=== PATIENT | female | born 1955 | race Caucasian/White ===

== ENCOUNTER 2022-01-03 16:26 | Observation (INO) ==
[2022-01-03 17:11] LABS: POC Blood Urea Nitrogen < 3 (6-20); POC Calcium, Ionized 1.13 (1.16-1.32); POC Chloride 97 (96-108); POC Creatinine 0.7 (0.6-1.2); POC Glucose, Random 123 (70-105); POC Potassium 3.7 (3.3-5.1); POC Sodium 135 (133-145)
[2022-01-03] MEDS ORDERED: METOCLOPRAMIDE 10 MG/2 ML VIAL IV ONE (17:40)
[2022-01-03] MEDS ORDERED: diphenhydrAMINE 50 MG/ML VIAL IV ONE (17:40)
[2022-01-03] MEDS ORDERED: ONDANSETRON 4 MG/2 ML VIAL IV ONE (17:46)
[2022-01-03] MEDS ORDERED: ONDANSETRON 4 MG ODT TABLET SL ONE (17:47)
[2022-01-03 17:55] LABS: Basophils # (Auto) 0 K/mcL (0.00-0.30); Basophils % (Auto) 0 % (0.0-2.0); Eosinophils # (Auto) 0.01 K/mcL (0.00-0.70); Eosinophils % (Auto) 0.1 % (0.0-7.0); Hematocrit 36.5 % (34.1-44.9); Hemoglobin 11.9 g/dL (11.2-15.7); Lymphocytes # (Auto) 1.51 K/mcL (1.50-4.80); Lymphocytes % (Auto) 18.2 % (15.5-49.0); Mean Corpuscular HGB Conc 32.6 g/dL (31.0-36.0); Mean Platelet Volume 10.9 fL (8.8-12.5); Monocytes # (Auto) 0.69 K/mcL (0.10-0.90); Monocytes % (Auto) 8.3 % (1.0-12.0); Neutrophils % (Auto) 72.8 % (38.0-78.0); Platelet Count 193 K/mcL (140-440); Red Cell Distribution Width 14.3 % (11.5-14.5); WBC 8.3 K/mcL (4.5-11.0)
[2022-01-03 18:13] LABS: ALT/SGPT < 5 U/L (<40); AST/SGOT 15 U/L (<32); Albumin < 0.2 gm/dL (3.2-5.2); Alkaline Phosphatase < 5 U/L (39-117); Bilirubin,Direct 0.2 mg/dL (<0.3); Bilirubin,Total 0.6 mg/dL (0.1-1.0); Globulin 6.2 gm/dL (2.2-3.7)
[2022-01-03] MEDS: KETOROLAC 30 MG/ML VIAL IV ONE ×2 (19:00→20:45)
[2022-01-03] MEDS ORDERED: ALBUTEROL SULFATE 200 PUFF INHALER INH PRN (19:47)
--- NOTE | 2022-01-03 20:03 | Internal Med History&Physical ---
HPI History of Present Illness Patient information: Note initiated : 01/03/22 at 7:55 pm Service Date, if different from initiated Date: [] Patient: Tomasa Magaña a 66 y/o F admitted on for abdominal pain. Chief Complaint: [abdominal pain, constipation] Chief complaint: abdominal pain, constipation History of present illness: Ms. Magaña is a 66 year old F history of gastric band placement and removal, chronic constipation's, depression, hypothyroidism, chronic pain, asthma, presenting with 10-day history of constipations and 7-day history of left lower quadrant abdominal pain. She have a long history of constipations. Last bowel movement about 10 days ago. She recently presented to [facility] ER for constipation and abdominal pain, and she was being discharged home with prescriptions of enema. She felt the outpatients enema therapy and she presented back to our ED today for further evaluation and treatments. She is currently complaining of 7 out of 10 left lower quadrant boring intermittent abdominal pain without radiations. She is also complaining of nausea. She has been passing gas but last bowel movement was about 10 days ago. She only able to take sips of water. She is not interested in solid food. Vital signs within normal limits. Labs also within normal limits. During her ER stay in [facility], they performed a CT of the abdomen pelvis and it was reported that she had large amount of stool in the descending colon and sigmoid colon. Constitutional Constitutional: Absent chills, excessive sweating, fatigue, fever(s) or weakness EENT Eyes: Absent blurry vision, change in vision, loss of vision or other visual disturbances Ears: Absent decreased hearing or tinnitus Nose, mouth and throat: Absent abnormal hearing, dry mouth, headache(s), nasal congestion or sore throat Cardiovascular Cardiovascular: Absent chest pain, chest pain at rest, edema, irregular heart rhythm or palpatations Respiratory Respiratory: Absent cough, dyspnea or wheezing Gastrointestinal Gastrointestinal: Present abdominal pain, constipation and nausea; Absent diarrhea or vomiting Musculoskeletal Musculoskeletal: Absent back pain, deformity, limited range of motion, muscle cramps, muscle weakness or numbness Integumentary Integumentary: Absent lesions, rash or wounds Neurological Neurological: Absent focal weakness, headache(s) or numbness Psychiatric Psychiatric: Absent anxiety, depression or hallucinations PFSH PFSH All Active Problems (Updated 01/03/22 @ 19:21 by Db Chopra DO) Colitis (Acute) Stercoral colitis (Acute) History of surgery (Chronic) Arm vein blood clot (Chronic) Achalasia (Chronic) Endocrine disorder (Chronic) Radiculopathy, lumbar region (Chronic) Major depressive disorder, recurrent (Acute) Bilateral sacroiliitis (Chronic) Polyarthralgia (Chronic) Foot pain, bilateral (Chronic) Inflammatory arthropathy (Chronic) Opiate dependence (Chronic) Anxiety disorder (Chronic) Vertigo (Chronic) Post-menopausal (Chronic) History of palpitations (Chronic) Spondyloarthropathy (Chronic) Nausea (Chronic) History of breast lump/mass excision (Chronic) UTI (urinary tract infection) (Chronic) History of hypoglycemia (Chronic) History of hyperglycemia (Chronic) Asthma (Chronic) Acute pain of both ears (Chronic) Wheezing (Chronic) Vitamin D deficiency (Chronic) Uncomplicated opioid dependence (Chronic) Non-restorative sleep (Chronic) Nocturnal hypoxia (Chronic) Need for jdemvmcclo-klsxacx-ybzpwufei (Tdap) vaccine (Chronic) Menopause (Chronic) Major depressive disorder (Chronic) Insomnia (Chronic) Idiopathic peripheral neuropathy (Chronic) Hereditary and idiopathic neuropathy (Chronic) Generalized anxiety disorder (Chronic) Gastroesophageal reflux disease (Chronic) Encounter for long-term (current) drug use (Chronic) Diverticulitis (Chronic) Diarrhea (Chronic) Antibiotic-induced yeast infection (Chronic) Acute sinusitis (Chronic) Migraine headache (Chronic) Hypoxia (Chronic) Neuropathy (Chronic) Glucose intolerance (impaired glucose tolerance) (Chronic) Psychiatric problem (Chronic) Chronic pain (Chronic) Constipation (Chronic) Hyperlipidemia (Chronic) Hypothyroidism (Chronic) Chronic constipation (Chronic) Neck pain (Chronic) Trochanteric bursitis (Chronic) Hip pain (Chronic) Hormone deficiency (Chronic) Depression (Chronic) Gastroparesis (Chronic) Balance problem (Chronic) Difficulty walking (Chronic) Fatigue (Chronic) Myofascial pain (Chronic) Cervicalgia (Chronic) Foot pain (Chronic) Medical History (Updated 01/03/22 @ 19:21 by Db Chopra DO) Achalasia Acute pain of both ears Acute sinusitis Antibiotic-induced yeast infection Anxiety disorder Arm vein blood clot RIGHT Asthma exercise-induced Balance problem Bilateral sacroiliitis Cervicalgia with myofascial pain Chronic constipation with a component related to medication Chronic pain Constipation Depression Diarrhea Difficulty walking Diverticulitis Encounter for long-term (current) drug use Endocrine disorder Fatigue Foot pain Syseqn-zhqcfnpdw-ijddcznsy Foot pain, bilateral Gastroesophageal reflux disease Gastroparesis with complications related to Lap Band placement Generalized anxiety disorder Glucose intolerance (impaired glucose tolerance) Hereditary and idiopathic neuropathy Hip pain History of breast lump/mass excision left History of hyperglycemia History of hypoglycemia History of palpitations Hormone deficiency Hyperlipidemia Hypothyroidism Hypoxia Idiopathic peripheral neuropathy Inflammatory arthropathy Insomnia anxiety Major depressive disorder Menopause Migraine headache Myofascial pain Nausea Neck pain Need for iazbkwefle-nfzvzlu-asxklursi (Tdap) vaccine Neuropathy Nocturnal hypoxia Non-restorative sleep Opiate dependence Polyarthralgia Post-menopausal Psychiatric problem Radiculopathy, lumbar region Spondyloarthropathy Trochanteric bursitis Acute, severe-Left Uncomplicated opioid dependence UTI (urinary tract infection) Vertigo benign positional Vitamin D deficiency Wheezing Surgical History History of spinal arthrodesis History of surgery Laparoscopic Restrictive Proc Adjustable Gastric Band Placement and Band Removal History of surgery LESI #1 Lt. L4-5 w/o sed 05/20/201812/24 LESI #2 L4-5 w/o sed 12/30/1710/23 LESI #1 L4-5 w/o sed 10/23/201707/18 SI Joint Injection Bilat w/o sed 07-17-1103/18 MBB cervical C2-3, C3-4, C4-5 bilat 04-05-1102/16 MBB Bilateral C2-3, C3-4, and C4-5 w/o sed 02-20-09/16 SCS Trial w/sed (09-13-10) 11/15 TRUDY #2, w/ cath, w/ sed (11/15/09) 10/15 TRUDY #1, C7-T1 10/25/09 w/sed 01/13 RFTC, left at C3-C7 w/ sed Family History Mother Adenomatous polyp Father Abdominal aortic aneurysm Grandmother Cerebrovascular accident Son ADHD (attention deficit hyperactivity disorder) Alcohol abuse Mood disorder Other Breast cancer Diabetes mellitus Glaucoma Prostate cancer Social History marital status: occupational status: retired other: Sedentary Lifestyle MEDS/ALLERGIES Home Medications and Allergies Home Medications Medication Instructions Recorded Confirmed Type albuterol sulfate 5 mg/mL(0.5 %) See Rx Instructions inhalation 10/01/16 01/03/22 History solution for nebulization .COMPLEX PRN Shortness Of Breath thyroid (pork) 90 mg tablet 90 mg PO QAM 10/01/16 01/03/22 History ([place] Thyroid) albuterol sulfate 90 mcg/actuation See Rx Instructions inhalation QID 10/31/16 01/03/22 History aerosol inhaler (ProAir HFA) PRN Shortness Of Breath budesonide-formoterol HFA 160 See Rx Instructions inhalation BID 10/31/16 01/03/22 History mcg-4.5 mcg/actuation aerosol inhaler (Symbicort) ondansetron HCl 8 mg tablet 8 mg PO PRN PRN Nausea 03/15/17 01/03/22 History sumatriptan succinate 100 mg tablet 100 mg PO PRN PRN Headache 03/15/17 01/03/22 History promethazine 12.5 mg rectal 12.5 mg [place] PRN PRN Nausea 10/26/20 01/03/22 History suppository imipramine HCl 10 mg tablet 15 mg PO QHS 30 days #45 tabs 08/31/21 01/03/22 Rx lorazepam 1 mg tablet 1 mg PO HS #30 tabs 01/01/22 01/03/22 Rx metoprolol succinate 50 mg 2 tab PO BID 01/03/22 01/03/22 History tablet,extended release 24 hr Allergies Allergy/AdvReac Type Severity Reaction Status Date / Time acetaminophen [From Tylenol] Allergy Unknown Anaphylaxis Verified 01/03/22 16:34 hydrocodone [From Vicoprofen] Allergy Unknown Unknown Verified 01/03/22 16:34 ibuprofen [From Vicoprofen] Allergy Unknown Unknown Verified 01/03/22 16:34 moxifloxacin [From Avelox] Allergy Unknown Unknown Verified 01/03/22 16:34 prochlorperazine Allergy Unknown Unknown Verified 01/03/22 16:34 [From Compazine] propofol Allergy Unknown Unknown Verified 01/03/22 16:34 Sulfa (Sulfonamide Allergy Unknown Unknown Verified 01/03/22 16:34 Antibiotics) tramadol Allergy Unknown Unknown Verified 01/03/22 16:34 nitrofurantin Allergy Severe Swelling Uncoded 06/14/21 14:02 sulfac Allergy Unknown Unknown Uncoded 06/14/21 14:02 EXAM Constitutional Vitals: Temp Pulse Resp BP Pulse Ox O2 Del Method 36.3 C 91 H 18 116/102 86 L 01/03/22 16:27 01/03/22 17:23 01/03/22 16:27 01/03/22 17:46 01/03/22 17:23 01/03/22 16:27 General appearance: cooperative and no acute distress Head Head exam: Present atraumatic and normocephalic Eye Eye exam: Present EOMI and PERRL ENT ENT exam: Present mucous membranes moist, normal exam and normal external ear exam Neck Neck exam: Present normal inspection; Absent lymphadenopathy, tenderness or thy romegaly Respiratory Respiratory exam: Absent accessory muscle use, respiratory distress or wheezes Cardiovascular Cardiovascular exam: Present normal rate and rhythm; Absent JVD GI/Abdominal GI/Abdominal exam: Present normal bowel sounds, distended, firm, guarding and tenderness; Absent organomegaly Extremities Exam Extremities exam: Present full ROM, normal capillary refill and normal inspection; Absent tenderness Neurological Exam Neurological exam: Present alert, CN II-XII intact and oriented X3; Absent motor sensory deficit Psychiatric Psychiatric exam: Present normal affect and normal mood; Absent anxious or depressed Skin Skin exam: Present dry and intact DATA Data Completed and Pending Labs: Labs from last 24 hours 01/03/22 01/03/22 01/03/22 17:08 17:03 17:03 WBC 8.3 RBC 4.40 Hgb 11.9 Hct 36.5 POC Hct 35.0 L MCV 83.0 MCH 27.0 MCHC 32.6 RDW 14.3 Plt Count 193 MPV 10.9 Immature Gran % (Auto) 0.6 H Neut % (Auto) 72.8 Lymph % (Auto) 18.2 [place] % (Auto) 8.3 Eos % (Auto) 0.1 Baso % (Auto) 0 Lymph # (Auto) 1.51 [place] # (Auto) 0.69 Eos # (Auto) 0.01 Baso # (Auto) 0 Immature Gran # 0.05 Absolute Neutrophils 6.04 POC Sodium 135 POC Potassium 3.7 POC Chloride 97 POC Total CO2 29.0 POC BUN < 3 L POC Creatinine 0.7 POC Glucose 123 H POC WB Ioniz Calcium 1.13 L Total Bilirubin 0.6 Direct Bilirubin 0.2 AST 15 ALT < 5 Alkaline Phosphatase < 5 L Total Protein 6.4 Albumin < 0.2 L Globulin 6.2 H Lipase 9 A/P Assessment and plan (1) Stercoral colitis: Status: Acute (2) Asthma: Status: Chronic Comment: exercise-induced (3) Major depressive disorder: Status: Chronic Qualifiers: Major depression recurrence: recurrent Active/Remission status: in partial remission Qualified Code(s): F33.41 - Major depressive disorder, recurrent, in partial remission (4) Constipation: Status: Chronic (5) Hypothyroidism: Status: Chronic (6) Gastroparesis: Status: Chronic Comment: with complications related to Lap Band placement (7) Migraine headache: Status: Chronic Narrative A/P Narrative: Assessment and Plans: 1. Stercoral colitis from chronic constipation: Observation med surg Clear liquid diet, advance as tolerate Colace Senna Milk of Magnesia Miralax Lactulose Dulcolax suppository Fleet enema 2. Gastroparesis, h/o gastric band: Zofran Phenergan Clear liquid diet, advance as tolerate 3. Hypothyroidism: Continue bronchodilators from home regimen 4. Major depressive disorder: Imipramine 5. h/o Migraine headache: Sumatriptan PRN migraine headache GI ppx: not currently indicated DVT ppx: Lovenox Code status: Full Prognosis: stable Disposition: observation med surg Time Spent With Patient Time: Total time spent is greater than 50% in coordination of care (as documented) at patient's floor/unit and/or counseling patient: Total time spent with greater than 50% in coordination of care (as documented) at patient's floor/unit and/or counseling patient:: 50 - 70 minutes
[2022-01-03] MEDS ORDERED: SUMAtriptan SUCCINATE 50 MG TABLET PO PRN (20:15)
[2022-01-03] MEDS ORDERED: KETOROLAC 60 MG/2 ML VIAL IM ONE (20:44)
[2022-01-03] MEDS ORDERED: IMIPRAMINE 10 MG TABLET PO SCH (21:00)
[2022-01-03] MEDS ORDERED: LORazepam 1 MG TABLET PO SCH (21:00)
[2022-01-03] MEDS ORDERED: BUDESONIDE FORMOTEROL INH PRN (21:00)
[2022-01-03] MEDS ORDERED: ONDANSETRON 4 MG/2 ML VIAL IV PRN (21:04)
[2022-01-03] MEDS ORDERED: LACTULOSE 20 GM/30 ML ORAL.SOL PO PRN (21:04)
[2022-01-03] MEDS ORDERED: PROMETHAZINE 25 MG/ML VIAL IV PRN (21:04)
[2022-01-03] MEDS ORDERED: SENNOSIDES 1 TABLET PO SCH (21:04)
[2022-01-03] MEDS ORDERED: ACETAMINOPHEN 325 MG TABLET PO PRN (21:04)
[2022-01-03] MEDS ORDERED: FLEETS ADULT ENEMA PR PRN (21:04)
[2022-01-03] MEDS ORDERED: MAGNESIUM HYDROXIDE 30 ML ORAL.SUSP PO PRN (21:04)
[2022-01-03] MEDS ORDERED: BISACODYL 10 MG SUPP.RECT PR PRN (21:04)
[2022-01-03] MEDS ORDERED: IBUPROFEN 600 MG TABLET PO PRN (21:04)
[2022-01-03] MEDS ORDERED: POLYETHYLENE GLYCOL 3350 17 GM PACKET PO PRN (21:04)
[2022-01-03] MEDS ORDERED: IPRATROPIUM/ALBUTEROL 3 ML AMPUL.NEB NEB PRN (21:04)
[2022-01-03] MEDS ORDERED: traZODone HCL 50 MG TABLET PO PRN (21:04)
[2022-01-03] MEDS: DOCUSATE SODIUM 100 MG CAPSULE PO SCH (22:37)
[2022-01-03] MEDS: METOPROLOL SUCCINATE 50 MG TAB.XL.24H PO SCH (22:37)
[2022-01-03] MEDS: 0.9 % SODIUM CHLORIDE 10 ML SYRINGE IV SCH (22:38)
[2022-01-03] MEDS ORDERED: KETOROLAC 30 MG/ML VIAL ONE (23:35)
[2022-01-03] MEDS: KETOROLAC 30 MG/ML VIAL IV PRN (23:36)
--- NOTE | 2022-01-04 03:33 | Emergency Department Note ---
Abdominal Pain HPI General Chief Complaint: Abdominal Pain Stated Complaint: abdominal pain Time Seen by Provider: 01/03/22 16:28 Source: patient Mode of arrival: ambulatory Limitations: no limitations History of Present Illness HPI Narrative: Narrative: This philly Menjivar is a 66-year-old female with a history of stercoral colitis with chronic constipation presenting to the ED with typical flareup of her symptoms left lower quadrant pain nausea, no bowel movement for 1 week but still passing flatus. She was seen [facility] about 1 week ago where she had a CT scan done that showed colitis without obstruction perforation or diverticulitis to her left descending colon and sigmoid with moderate stool burden. She was discharged home with MiraLAX she has done an enema and stool softeners but says it is not helping. No bloody bowel movement no urinary symptoms no fever no chills or other complaints. She says she has required admission 9 or 10 times in the past for this exact issue usually for serial en emas and strict bowel regimen. She follows with gastroenterology. Related Data Home Medications Medication Instructions Recorded Confirmed albuterol sulfate 5 mg/mL(0.5 %) See Rx Instructions inhalation 10/01/16 01/03/22 solution for nebulization .COMPLEX PRN Shortness Of Breath albuterol sulfate 90 mcg/actuation See Rx Instructions inhalation QID 10/31/16 01/03/22 aerosol inhaler (ProAir HFA) PRN Shortness Of Breath budesonide-formoterol HFA 160 See Rx Instructions inhalation BID 10/31/16 01/03/22 mcg-4.5 mcg/actuation aerosol inhaler (Symbicort) ondansetron HCl 8 mg tablet 8 mg PO PRN PRN Nausea 03/15/17 01/03/22 sumatriptan succinate 100 mg tablet 100 mg PO PRN PRN Headache 03/15/17 01/03/22 promethazine 12.5 mg rectal 12.5 mg [place] PRN PRN Nausea 10/26/20 01/03/22 suppository metoprolol succinate 50 mg 2 tab PO BID 01/03/22 01/03/22 tablet,extended release 24 hr Previous Rx's Medication Instructions Recorded imipramine HCl 10 mg tablet 15 mg PO QHS 30 days #45 tabs 08/31/21 lorazepam 1 mg tablet 1 mg PO HS #30 tabs 01/01/22 Allergies Allergy/AdvReac Type Severity Reaction Status Date / Time acetaminophen [From Tylenol] Allergy Unknown Anaphylaxis Verified 01/03/22 21:12 hydrocodone [From Vicoprofen] Allergy Unknown Rash Verified 01/03/22 21:12 ibuprofen [From Vicoprofen] Allergy Unknown Rash Verified 01/03/22 21:12 moxifloxacin [From Avelox] Allergy Unknown Unknown Verified 01/03/22 21:12 prochlorperazine Allergy Unknown Photosensit Verified 01/03/22 21:12 [From Compazine] ivity propofol Allergy Unknown Unknown Verified 01/03/22 21:12 Sulfa (Sulfonamide Allergy Unknown Unknown Verified 01/03/22 21:12 Antibiotics) tramadol Allergy Unknown Unknown Verified 01/03/22 21:12 nitrofurantin Allergy Severe Swelling Uncoded 06/14/21 14:02 sulfac Allergy Unknown Unknown Uncoded 06/14/21 14:02 Review of Systems ROS ROS Narrative: Narrative: All systems ED: reviewed and negative except as stated. PFSH Narrative Patient History Narrative: Narrative: Medical/Surgical/Family History All Active Problems Colitis (Acute) Stercoral colitis (Acute) History of surgery (Chronic) Arm vein blood clot (Chronic) Achalasia (Chronic) Endocrine disorder (Chronic) Radiculopathy, lumbar region (Chronic) Major depressive disorder, recurrent (Acute) Bilateral sacroiliitis (Chronic) Polyarthralgia (Chronic) Foot pain, bilateral (Chronic) Inflammatory arthropathy (Chronic) Opiate dependence (Chronic) Anxiety disorder (Chronic) Vertigo (Chronic) Post-menopausal (Chronic) History of palpitations (Chronic) Spondyloarthropathy (Chronic) Nausea (Chronic) History of breast lump/mass excision (Chronic) UTI (urinary tract infection) (Chronic) History of hypoglycemia (Chronic) History of hyperglycemia (Chronic) Asthma (Chronic) Acute pain of both ears (Chronic) Wheezing (Chronic) Vitamin D deficiency (Chronic) Uncomplicated opioid dependence (Chronic) Non-restorative sleep (Chronic) Nocturnal hypoxia (Chronic) Need for giissgsyyk-ojzusuq-iemieavel (Tdap) vaccine (Chronic) Menopause (Chronic) Major depressive disorder (Chronic) Insomnia (Chronic) Idiopathic peripheral neuropathy (Chronic) Hereditary and idiopathic neuropathy (Chronic) Generalized anxiety disorder (Chronic) Gastroesophageal reflux disease (Chronic) Encounter for long-term (current) drug use (Chronic) Diverticulitis (Chronic) Diarrhea (Chronic) Antibiotic-induced yeast infection (Chronic) Acute sinusitis (Chronic) Migraine headache (Chronic) Hypoxia (Chronic) Neuropathy (Chronic) Glucose intolerance (impaired glucose tolerance) (Chronic) Psychiatric problem (Chronic) Chronic pain (Chronic) Constipation (Chronic) Hyperlipidemia (Chronic) Hypothyroidism (Chronic) Chronic constipation (Chronic) Neck pain (Chronic) Trochanteric bursitis (Chronic) Hip pain (Chronic) Hormone deficiency (Chronic) Depression (Chronic) Gastroparesis (Chronic) Balance problem (Chronic) Difficulty walking (Chronic) Fatigue (Chronic) Myofascial pain (Chronic) Cervicalgia (Chronic) Foot pain (Chronic) Medical History Achalasia Acute pain of both ears Acute sinusitis Antibiotic-induced yeast infection Anxiety disorder Arm vein blood clot RIGHT Asthma exercise-induced Balance problem Bilateral sacroiliitis Cervicalgia with myofascial pain Chronic constipation with a component related to medication Chronic pain Constipation Depression Diarrhea Difficulty walking Diverticulitis Encounter for long-term (current) drug use Endocrine disorder Fatigue Foot pain Wbbtsk-pnqpsujot-ctpltecwn Foot pain, bilateral Gastroesophageal reflux disease Gastroparesis with complications related to Lap Band placement Generalized anxiety disorder Glucose intolerance (impaired glucose tolerance) Hereditary and idiopathic neuropathy Hip pain History of breast lump/mass excision left History of hyperglycemia History of hypoglycemia History of palpitations Hormone deficiency Hyperlipidemia Hypothyroidism Hypoxia Idiopathic peripheral neuropathy Inflammatory arthropathy Insomnia anxiety Major depressive disorder Menopause Migraine headache Myofascial pain Nausea Neck pain Need for vfrtvdcteu-lmiectc-moipvxyeq (Tdap) vaccine Neuropathy Nocturnal hypoxia Non-restorative sleep Opiate dependence Polyarthralgia Post-menopausal Psychiatric problem Radiculopathy, lumbar region Spondyloarthropathy Trochanteric bursitis Acute, severe-Left Uncomplicated opioid dependence UTI (urinary tract infection) Vertigo benign positional Vitamin D deficiency Wheezing Surgical History History of spinal arthrodesis History of surgery Laparoscopic Restrictive Proc Adjustable Gastric Band Placement and Band Removal History of surgery LESI #1 Lt. L4-5 w/o sed 05/20/201812/24 LESI #2 L4-5 w/o sed 12/30/1710/23 LESI #1 L4-5 w/o sed 10/23/201707/18 SI Joint Injection Bilat w/o sed 07-17-1103/18 MBB cervical C2-3, C3-4, C4-5 bilat 04-05-1102/16 MBB Bilateral C2-3, C3-4, and C4-5 w/o sed 02-20-1109/16 SCS Trial w/sed (09-13-10) 11/15 TRUDY #2, w/ cath, w/ sed (11/15/09) 10/15 TRUDY #1, C7-T1 10/25/09 w/sed 01/13 RFTC, left at C3-C7 w/ sed Family History Mother Adenomatous polyp Father Abdominal aortic aneurysm Grandmother Cerebrovascular accident Son ADHD (attention deficit hyperactivity disorder) Alcohol abuse Mood disorder Other Breast cancer Diabetes mellitus Glaucoma Prostate cancer Social History Smoking Status: Never smoker Exam Narrative Narrative: Narrative:I think constitutional: normally developed, no acute distress . Head: Normocephalic, atraumatic, Eyes: No Icterus, ENT: Moist mucus membranes, Neck: Supple, Cardiac: Normal heart sounds, Pulmonary: Normal respiratory effort. Breath sounds clear, no wheeze, rhonchi, rales, Gastrointestinal: Abdomen soft, non-distended, tender to the left lower quadrant no rebound or guarding Musculoskeletal: No gross deformities, well perfused Skin: warm, dry Neuro: Alert General Limitations: no limitations Course Vital Signs Vital signs: Vital Signs Temperature 36.3 C 01/03/22 16:27 Pulse Rate 104 H 01/03/22 16:27 Respiratory Rate 18 01/03/22 16:27 Blood Pressure 92/52 01/03/22 16:27 Pulse Oximetry (%) 95 01/03/22 16:27 Oxygen Delivery Method 01/03/22 16:27 Temperature 36.6 C 01/03/22 23:49 Pulse Rate 76 01/03/22 23:49 Respiratory Rate 16 01/03/22 23:49 Blood Pressure 107/66 01/03/22 23:49 Pulse Oximetry (%) 92 01/03/22 20:54 Oxygen Delivery Method 01/03/22 23:49 [facility] MDM Narrative Medical decision making narrative: Narrative: Patient with recurrent flareups of stercoral colitis. Has failed outpatient management, she has tried an aggressive home regimen after [facility] visit but symptoms not resolving. She is mildly tender but nonrigid no rebound still passing flatus. Suspicion for new obstruction is low do not feel repeat emergent imaging indicated. Did treat symptomatically as well as obtain labs CBC is unremarkable electrolytes without any significant abnormalities urine shows moderate ketones otherwise negative for infection Reevaluation she is feeling a bit better but given her failed outpatient, her history and requirement for frequent admission for aggressive bowel regimen I do believe observation admission is warranted Spoke with Dr. Lundberg who is happy to consult if needed from a surgical standpoint And have spoken with Dr. Kauffman who is happy to admit the patient Patient agreeable to plan at the time of admission her pain is quite improved vitals are stable Lab Data Result diagrams: 01/03/22 17:03 Labs: Lab Results 01/03/22 01/03/22 01/03/22 Range/Units 17:03 17:03 17:08 WBC 8.3 (4.5-11.0) K/mcL RBC 4.40 (3.59-5.38) M/mcL Hgb 11.9 (11.2-15.7) g/dL Hct 36.5 (34.1-44.9) % POC Hct 35.0 L (36-48) MCV 83.0 (80.0-100.0) fL MCH 27.0 (26.0-34.0) pg MCHC 32.6 (31.0-36.0) g/dL RDW 14.3 (11.5-14.5) % Plt Count 193 (140-440) K/mcL MPV 10.9 (8.8-12.5) fL Immature Gran % (Auto) 0.6 H (0.0-0.5) % Neut % (Auto) 72.8 (38.0-78.0) % Lymph % (Auto) 18.2 (15.5-49.0) % [place] % (Auto) 8.3 (1.0-12.0) % Eos % (Auto) 0.1 (0.0-7.0) % Baso % (Auto) 0 (0.0-2.0) % Lymph # (Auto) 1.51 (1.50-4.80) K/mcL [place] # (Auto) 0.69 (0.10-0.90) K/mcL Eos # (Auto) 0.01 (0.00-0.70) K/mcL Baso # (Auto) 0 (0.00-0.30) K/mcL Immature Gran # 0.05 (0.00-0.05) K/mcl Absolute Neutrophils 6.04 (1.80-8.00) K/mcL POC Sodium 135 (133-145) POC Potassium 3.7 (3.3-5.1) POC Chloride 97 (96-108) POC Total CO2 29.0 (22-30) POC BUN < 3 L (6-20) POC Creatinine 0.7 (0.6-1.2) POC Glucose 123 H (70-105) POC WB Ioniz Calcium 1.13 L (1.16-1.32) Total Bilirubin 0.6 (0.1-1.0) mg/dL Direct Bilirubin 0.2 (<0.3) mg/dL AST 15 (<32) U/L ALT < 5 (<40) U/L Alkaline Phosphatase < 5 L (39-117) U/L Total Protein 6.4 (5.9-8.4) gm/dL Albumin < 0.2 L (3.2-5.2) gm/dL Globulin 6.2 H (2.2-3.7) gm/dL Lipase 9 (7-60) U/L Discharge Plan Patient/Caregiver Discharge Instructions Pt seen by HEATING AND REFRIGERATION INSPECTOR/PA only: No Clinical Impression: Colitis, Stercoral colitis Patient Disposition: Xfer As Outpt/Obs ([facility]) Condition: Fair Discharge Date/Time: 01/03/22 21:13
[2022-01-04] MEDS: KETOROLAC 30 MG/ML VIAL IV PRN (05:54)
[2022-01-04] MEDS: 0.9 % SODIUM CHLORIDE 10 ML SYRINGE IV SCH ×2 (05:55→14:11)
[2022-01-04] MEDS ORDERED: THYROID PORK 180 MG PO SCH (07:30)
[2022-01-04] MEDS: DOCUSATE SODIUM 100 MG CAPSULE PO SCH (08:47)
[2022-01-04] MEDS: METOPROLOL SUCCINATE 50 MG TAB.XL.24H PO SCH (08:49)
[2022-01-04] MEDS ORDERED: THYROID, PORK 60 MG TABLET PO SCH (09:00)
[2022-01-04] MEDS ORDERED: ENOXAPARIN 40 MG/0.4 ML SYRINGE SQ SCH (09:00)
--- NOTE | 2022-01-04 12:43 | General Surgery Consult Note ---
HPI Data of Consult Consult date: 01/04/22 Primary Care Provider: Karen Jennings Consult Narrative Chief complaint: Abdominal pain History of present illness: This is a pleasant 66-year-old female with a long history of colitis. She gets her colitis quite often, she once in a while needs to be admitted for IV hydration and repeated enemas. She was admitted last night, she reports that she had multiple large bowel movements overnight and feels much better than she did when she came in. At this time she has no abdominal pain, she has no fevers chills nausea or vomiting. She feels like her colitis is resolving. cc:: CC: Kevin Kauffman MD Review of Systems Review of systems: All systems were reviewed, negative other than above PFSH PFSH All Active Problems Colitis (Acute) Stercoral colitis (Acute) History of surgery (Chronic) Arm vein blood clot (Chronic) Achalasia (Chronic) Endocrine disorder (Chronic) Radiculopathy, lumbar region (Chronic) Major depressive disorder, recurrent (Acute) Bilateral sacroiliitis (Chronic) Polyarthralgia (Chronic) Foot pain, bilateral (Chronic) Inflammatory arthropathy (Chronic) Opiate dependence (Chronic) Anxiety disorder (Chronic) Vertigo (Chronic) Post-menopausal (Chronic) History of palpitations (Chronic) Spondyloarthropathy (Chronic) Nausea (Chronic) History of breast lump/mass excision (Chronic) UTI (urinary tract infection) (Chronic) History of hypoglycemia (Chronic) History of hyperglycemia (Chronic) Asthma (Chronic) Acute pain of both ears (Chronic) Wheezing (Chronic) Vitamin D deficiency (Chronic) Uncomplicated opioid dependence (Chronic) Non-restorative sleep (Chronic) Nocturnal hypoxia (Chronic) Need for [id number]-[id number] (Tdap) vaccine (Chronic) Menopause (Chronic) Major depressive disorder (Chronic) Insomnia (Chronic) Idiopathic peripheral neuropathy (Chronic) Hereditary and idiopathic neuropathy (Chronic) Generalized anxiety disorder (Chronic) Gastroesophageal reflux disease (Chronic) Encounter for long-term (current) drug use (Chronic) Diverticulitis (Chronic) Diarrhea (Chronic) Antibiotic-induced yeast infection (Chronic) Acute sinusitis (Chronic) Migraine headache (Chronic) Hypoxia (Chronic) Neuropathy (Chronic) Glucose intolerance (impaired glucose tolerance) (Chronic) Psychiatric problem (Chronic) Chronic pain (Chronic) Constipation (Chronic) Hyperlipidemia (Chronic) Hypothyroidism (Chronic) Chronic constipation (Chronic) Neck pain (Chronic) Trochanteric bursitis (Chronic) Hip pain (Chronic) Hormone deficiency (Chronic) Depression (Chronic) Gastroparesis (Chronic) Balance problem (Chronic) Difficulty walking (Chronic) Fatigue (Chronic) Myofascial pain (Chronic) Cervicalgia (Chronic) Foot pain (Chronic) Medical History Achalasia Acute pain of both ears Acute sinusitis Antibiotic-induced yeast infection Anxiety disorder Arm vein blood clot RIGHT Asthma exercise-induced Balance problem Bilateral sacroiliitis Cervicalgia with myofascial pain Chronic constipation with a component related to medication Chronic pain Constipation Depression Diarrhea Difficulty walking Diverticulitis Encounter for long-term (current) drug use Endocrine disorder Fatigue Foot pain Ssvjtp-[id number]-emvulglqr Foot pain, bilateral Gastroesophageal reflux disease Gastroparesis with complications related to Lap Band placement Generalized anxiety disorder Glucose intolerance (impaired glucose tolerance) Hereditary and idiopathic neuropathy Hip pain History of breast lump/mass excision left History of hyperglycemia History of hypoglycemia History of palpitations Hormone deficiency Hyperlipidemia Hypothyroidism Hypoxia Idiopathic peripheral neuropathy Inflammatory arthropathy Insomnia anxiety Major depressive disorder Menopause Migraine headache Myofascial pain Nausea Neck pain Need for [id number] (Tdap) vaccine Neuropathy Nocturnal hypoxia Non-restorative sleep Opiate dependence Polyarthralgia Post-menopausal Psychiatric problem Radiculopathy, lumbar region Spondyloarthropathy Trochanteric bursitis Acute, severe-Left Uncomplicated opioid dependence UTI (urinary tract infection) Vertigo benign positional Vitamin D deficiency Wheezing Surgical History History of spinal arthrodesis History of surgery Laparoscopic Restrictive Proc Adjustable Gastric Band Placement and Band Removal History of surgery LESI #1 Lt. L4-5 w/o sed 05/20/201812/24 LESI #2 L4-5 w/o sed 12/30/1710/23 LESI #1 L4-5 w/o sed 10/23/201707/18 SI Joint Injection Bilat w/o sed 07-17-1103/18 MBB cervical C2-3, C3-4, C4-5 bilat 04-05-1102/16 MBB Bilateral C2-3, C3-4, and C4-5 w/o sed 02-20-1109/16 SCS Trial w/sed (09-13-10) 11/15 TRUDY #2, w/ cath, w/ sed (11/15/09) 10/15 TRUDY #1, C7-T1 10/25/09 w/sed 01/13 RFTC, left at C3-C7 w/ sed Family History Mother Adenomatous polyp Father Abdominal aortic aneurysm Grandmother Cerebrovascular accident Son ADHD (attention deficit hyperactivity disorder) Alcohol abuse Mood disorder Other Breast cancer Diabetes mellitus Glaucoma Prostate cancer Social History marital status: occupational status: retired other: Sedentary Lifestyle smoking status: Never smoker MEDS/ALLERGIES Home Medications and Allergies Home Medications Medication Instructions Recorded Confirmed Type albuterol sulfate 5 mg/mL(0.5 %) See Rx Instructions inhalation 10/01/16 01/03/22 History solution for nebulization .COMPLEX PRN Shortness Of Breath albuterol sulfate 90 mcg/actuation See Rx Instructions inhalation QID 10/31/16 01/03/22 History aerosol inhaler (ProAir HFA) PRN Shortness Of Breath budesonide-formoterol HFA 160 See Rx Instructions inhalation BID 10/31/16 01/03/22 History mcg-4.5 mcg/actuation aerosol inhaler (Symbicort) ondansetron HCl 8 mg tablet 8 mg PO PRN PRN Nausea 03/15/17 01/03/22 History sumatriptan succinate 100 mg tablet 100 mg PO PRN PRN Headache 03/15/17 01/03/22 History promethazine 12.5 mg rectal 12.5 mg MD PRN PRN Nausea 10/26/20 01/03/22 History suppository imipramine HCl 10 mg tablet 15 mg PO QHS 30 days #45 tabs 08/31/21 01/03/22 Rx lorazepam 1 mg tablet 1 mg PO HS #30 tabs 01/01/22 01/03/22 Rx metoprolol succinate 50 mg 2 tab PO BID 01/03/22 01/03/22 History tablet,extended release 24 hr Allergies Allergy/AdvReac Type Severity Reaction Status Date / Time acetaminophen [From Tylenol] Allergy Unknown Anaphylaxis Verified 01/03/22 21:12 hydrocodone [From Vicoprofen] Allergy Unknown Rash Verified 01/03/22 21:12 ibuprofen [From Vicoprofen] Allergy Unknown Rash Verified 01/03/22 21:12 moxifloxacin [From Avelox] Allergy Unknown Unknown Verified 01/03/22 21:12 prochlorperazine Allergy Unknown Photosensit Verified 01/03/22 21:12 [From Compazine] ivity propofol Allergy Unknown Unknown Verified 01/03/22 21:12 Sulfa (Sulfonamide Allergy Unknown Unknown Verified 01/03/22 21:12 Antibiotics) tramadol Allergy Unknown Unknown Verified 01/03/22 21:12 nitrofurantin Allergy Severe Swelling Uncoded 06/14/21 14:02 sulfac Allergy Unknown Unknown Uncoded 06/14/21 14:02 Physical Examination Vital Signs Vital signs: Temp Pulse Resp BP Pulse Ox O2 Del Method O2 Flow Rate 98.9 F 88 14 117/76 97 2 01/04/22 12:00 01/04/22 12:00 01/04/22 12:00 01/04/22 12:00 01/04/22 12:00 01/04/22 12:00 01/04/22 03:48 General physical appearance General physical exam: well developed, well nourished and no distress Eyes Eye exam: PERRL and normal ocular movement ENT ENT exam: normal pinna, normal nares, normal mucosa, no hearing loss and no congestion Head Head exam IM: Present atraumatic and normocephalic Neck Neck exam: no masses, no bruits, trachea midline, no lymphadenopathy and no venous distension Cardiovascular Cardiovascular exam IM: Present normal rate and rhythm Respiratory Respiratory exam: normal expansion, normal respiratory effort, clear to percussion and clear to auscultation Abdomen Abdomen: Present soft, non tender and bowel sounds Hernia: Present none Genitourinary Genitourinary (Female): Present normal external genitalia Rectum Rectum: Present normal sphincter tone, no hemorrhoids, no tenderness, no masses and no bleeding Integumentary Integumentary: Present no rash, no growths and no abnormal pigmentation Neurologic Neurologic: Present normal coordination and normal sensation Musculoskeletal Musculoskeletal: Present normal gait and normal posture Psychiatric Psychiatric: Present oriented to time, oriented to person, oriented to place, speech is normal and memory intact Results Labs Result diagrams: 01/03/22 17:03 Labs: Abnormal lab results 01/03/22 01/03/22 01/03/22 Range/Units 17:03 17:03 17:08 POC Hct 35.0 L (36-48) Immature Gran % (Auto) 0.6 H (0.0-0.5) % POC BUN < 3 L (6-20) POC Glucose 123 H (70-105) POC WB Ioniz Calcium 1.13 L (1.16-1.32) Alkaline Phosphatase < 5 L (39-117) U/L Albumin < 0.2 L (3.2-5.2) gm/dL Globulin 6.2 H (2.2-3.7) gm/dL Diabetes panel 01/03/22 Range/Units 17:03 AST 15 (<32) U/L ALT < 5 (<40) U/L Alkaline Phosphatase < 5 L (39-117) U/L Total Protein 6.4 (5.9-8.4) gm/dL Albumin < 0.2 L (3.2-5.2) gm/dL Calcium panel 01/03/22 Range/Units 17:03 Albumin < 0.2 L (3.2-5.2) gm/dL Adrenal panel 01/03/22 Range/Units 17:03 Total Bilirubin 0.6 (0.1-1.0) mg/dL AST 15 (<32) U/L ALT < 5 (<40) U/L Alkaline Phosphatase < 5 L (39-117) U/L Total Protein 6.4 (5.9-8.4) gm/dL Albumin < 0.2 L (3.2-5.2) gm/dL All other labs normal. A/P Assessment and plan (1) Stercoral colitis: Plan: This is a pleasant 66-year-old female who presents with her known history of steroid colorectal colitis. She feels much better this morning, has multiple bowel movements. From a surgical standpoint can advance diet as tolerated, cleared for discharge, follow-up with primary care physician. Status: Acute Time Spent With Patient Time: Total time spent is greater than 50% in coordination of care (as documented) at patient's floor/unit and/or counseling patient:
--- NOTE | 2022-01-04 14:27 | Discharge Summary ---
Discharge Provider Provider IMPORTANT FOLLOW-UP INFORMATION FOR PCP: Patient information: Note initiated : 01/04/22 at 2:25 pm Service Date, if different from initiated Date: [] Patient: Tomasa Magaña 66 y/o F admitted on 01/03/22 for abdominal pain. Chief Complaint: [] Date of admission: 01/03/22 20:52 Discharge date: 01/04/22 Primary care physician: Karen Jennings Attending physician on admission: Kevin Kauffman Consults: 01/03/22 Consult to Physician [CONS] Stat Comment: Consulting Provider: Kevin Kauffman Reason For Exam: Physician to Consult Consult to Physician [CONS] Stat Comment: stercoral colitis Consulting Provider: Juvenal Lundberg Reason For Exam: Physician to Consult Attending physician on discharge: Kevin Kauffman COURSE Hospital Course Hospital course: Ms. Magaña is a 66 year old F history of gastric band placement and removal, chronic constipation's, depression, hypothyroidism, chronic pain, asthma, presenting with 10-day history of constipations and 7-day history of left lower quadrant abdominal pain. She have a long history of constipations. Last bowel movement about 10 days ago. She recently presented to [facility] ER for constipation and abdominal pain, and she was being discharged home with prescriptions of enema. She felt the outpatients enema therapy and she presented back to our ED today for further evaluation and treatments. She is currently complaining of 7 out of 10 left lower quadrant boring intermittent abdominal pain without radiations. She is also complaining of nausea. She has been passing gas but last bowel movement was about 10 days ago. She only able to take sips of water. She is not interested in solid food. Vital signs within normal limits. Labs also within normal limits. During her ER stay in [facility], they performed a CT of the abdomen pelvis and it was reported that she had large amount of stool in the descending colon and sigmoid colon. 01/04: Passed a large bowel movement overnight. Abdominal pain and distention resolved. Tolerating diet at her baseline. Reached clinical stability. Decision made to DC home. Discharge diagnosis: stercoral colitis Time Spent with Patient Time attestation: Total time spent providing and/or coordinating discharge services: Time spent: Less than 30 minutes EXAM Constitutional Vitals: Temp Pulse Resp BP Pulse Ox O2 Del Method O2 Flow Rate 37.2 C 88 14 117/76 97 2 01/04/22 12:00 01/04/22 12:00 01/04/22 12:00 01/04/22 12:00 01/04/22 12:00 01/04/22 12:00 01/04/22 03:48 General appearance: cooperative and no acute distress Head Head exam: Present atraumatic and normocephalic Eye Eye exam: Present EOMI and PERRL ENT ENT exam: Present mucous membranes moist, normal exam and normal external ear exam Neck Neck exam: Present normal inspection; Absent lymphadenopathy, tenderness or thyromegaly Respiratory Respiratory exam: Absent accessory muscle use, respiratory distress or wheezes Cardiovascular Cardiovascular exam: Present normal rate and rhythm; Absent JVD GI/Abdominal GI/Abdominal exam: Present normal bowel sounds and soft; Absent organomegaly or tenderness Extremities Exam Extremities exam: Present full ROM, normal capillary refill and normal inspection; Absent tenderness Neurological Exam Neurological exam: Present alert, CN II-XII intact and oriented X3; Absent motor sensory deficit Psychiatric Psychiatric exam: Present normal affect and normal mood; Absent anxious or depressed Skin Skin exam: Present dry and intact Discharge Data Data Completed and Pending Labs on day of discharge: Labs from last 24 hours 01/03/22 01/03/22 01/03/22 17:08 17:03 17:03 WBC 8.3 RBC 4.40 Hgb 11.9 Hct 36.5 POC Hct 35.0 L MCV 83.0 MCH 27.0 MCHC 32.6 RDW 14.3 Plt Count 193 MPV 10.9 Immature Gran % (Auto) 0.6 H Neut % (Auto) 72.8 Lymph % (Auto) 18.2 [place] % (Auto) 8.3 Eos % (Auto) 0.1 Baso % (Auto) 0 Lymph # (Auto) 1.51 [place] # (Auto) 0.69 Eos # (Auto) 0.01 Baso # (Auto) 0 Immature Gran # 0.05 Absolute Neutrophils 6.04 POC Sodium 135 POC Potassium 3.7 POC Chloride 97 POC Total CO2 29.0 POC BUN < 3 L POC Creatinine 0.7 POC Glucose 123 H POC WB Ioniz Calcium 1.13 L Total Bilirubin 0.6 Direct Bilirubin 0.2 AST 15 ALT < 5 Alkaline Phosphatase < 5 L Total Protein 6.4 Albumin < 0.2 L Globulin 6.2 H Lipase 9 Discharge Plan Patient/Caregiver Discharge Instructions Activity: increase activity as tolerated Diet: Regular Diet Instructions: Colitis (ED) Prescriptions: Continued imipramine HCl 10 mg tablet 15 mg PO QHS 30 Days Qty: 45 3RF lorazepam 1 mg tablet 1 mg PO HS Qty: 30 3RF albuterol sulfate 5 mg/mL solution for nebulization See Rx Instructions INHALATION .COMPLEX PRN (Reason: Shortness Of Breath) Label Comments: INHALATION PRN Rx Instructions: INHALATION PRN albuterol sulfate [ProAir HFA] 90 mcg/actuation HFA aerosol inhaler See Rx Instructions INHALATION QID PRN (Reason: Shortness Of Breath) Label Comments: 1-2 puffs INHALATION QID PRN Rx Instructions: 1-2 puffs INHALATION QID PRN budesonide-formoterol [Symbicort] 160-4.5 mcg/actuation HFA aerosol inhaler See Rx Instructions INHALATION BID Label Comments: 1-2 INHALATION BID PRN Rx Instructions: 1-2 INHALATION BID PRN ondansetron HCl 8 MG tablet 8 mg PO PRN PRN (Reason: Nausea) sumatriptan succinate 100 MG tablet 100 mg PO PRN PRN (Reason: Headache) promethazine 12.5 mg suppository 12.5 mg [place] PRN PRN (Reason: Nausea) metoprolol succinate 50 mg tablet extended release 24 hr 2 tab PO BID Follow Up Plan Follow up with: Karen Jennings MD [Primary Care Provider] - Patient Disposition: Home, Self-Care Prognosis: Fair Rehab Potential: Good I certify that the patient requires SNF services: No Overall status at discharge: patient is back to baseline Discharge Orders: Discharge Order (Routine); Ordered 01/04/22 Ordered By: Kevin NAYLOR VTE Deep Vein Thrombosis/Pulmonary Embolism Present on Admission: No
== END 2022-01-04 16:45 | disposition home or self-care (01) ==
LOC: ED 16:26 → MEDSUR 16:26
PROVIDERS: ADMIT Internal Medicine; ATTEND Internal Medicine